=== PATIENT | male | born 1965 | race Caucasian/White ===

== ENCOUNTER 2025-01-22 13:44 | Inpatient (IN) | payer OTHER ==
[~2025-01-22] VITALS: Ht 175.3 cm; Wt 59.0 kg
[2025-01-22 14:46] LABS: APPEARANCE,URINE CLEAR (CLEAR); GLUCOSE, URINE (UA) NEGATIVE (NEGATIVE); LEUKOCYTE ESTERASE ,URINE NEGATIVE (NEGATIVE); NITRATE,URINE NEGATIVE (NEGATIVE); OCCULT BLOOD,URINE NEGATIVE (NEGATIVE); SPECIFIC GRAVITIY, URINE 1.004 (1.003-1.030)
[2025-01-22 14:56] LABS: PLATELET COUNT (AUTO) 279 K/uL (150-450); RED BLOOD CELL COUNT(AUTO) 4.76 MIL/uL (4.50-5.90); RED CELL DISTRIBUTION WIDTH 13.5 % (11.5-14.5); WHITE BLOOD COUNT (AUTO) 5.5 K/uL (4.5-11.0)
[2025-01-22 15:06] LABS: CALCIUM, TOTAL 9.3 mg/dL (8.8-10.5); CREATININE 1.36 mg/dL (0.60-1.30); GLOMERULAR FILTR. RATE CALC 54.0 mL/min (>60); GLUCOSE,RANDOM 87.0 mg/dL (70-110); UREA NITROGEN, BLOOD 19.0 mg/dL (7-18)
[2025-01-22 15:07] LABS: SODIUM SERUM 123.0 mmol/L (136-145)
[2025-01-22] MEDS: POTASSIUM CHL 20 MEQ/0.9% NS 1,000 ML IV SCH (15:26)
[2025-01-22] MEDS: KETOROLAC TROMETHAMINE 30 MG/ML VIAL IVP ONE (17:00)
[2025-01-22] MEDS: MORPHINE SULFATE 2 MG/ML SYRINGE IVP ONE (17:02)
[2025-01-22] MEDS ORDERED: ATOR20TA PO (19:28)
[2025-01-22] MEDS ORDERED: DIPH50CA39 PO (19:28)
[2025-01-22] MEDS ORDERED: CALC500T37 PO (19:28)
[2025-01-22] MEDS ORDERED: MAGN-169 PO (19:28)
[2025-01-22] MEDS ORDERED: HALO5VIA16 IM (19:28)
[2025-01-22] MEDS ORDERED: OMEP-148 PO (19:28)
[2025-01-22] MEDS ORDERED: CHLO50TA71 PO ×2 (19:28→20:33)
[2025-01-22] MEDS ORDERED: TRAZ-252 PO (19:28)
[2025-01-22 19:57] LABS: CALCIUM, TOTAL 8.2 mg/dL (8.8-10.5); CREATININE 1.27 mg/dL (0.60-1.30); GLOMERULAR FILTR. RATE CALC 58.0 mL/min (>60); GLUCOSE,RANDOM 87.0 mg/dL (70-110); SODIUM SERUM 125.0 mmol/L (136-145); UREA NITROGEN, BLOOD 17.0 mg/dL (7-18)
[2025-01-22] MEDS: POTASSIUM CHLORIDE 20 MEQ ER TABLET PO ONE (20:25)
[2025-01-22] MEDS: POTASSIUM CHL 10 MEQ/WATER 50 ML IV SCH (20:26)
[2025-01-22] MEDS ORDERED: ALBUTEROL SULFATE 2.5 MG/0.5 ML NEB SOLUTION NEB PRN (20:30)
[2025-01-22] MEDS ORDERED: ONDANSETRON HCL 4 MG/2 ML VIAL IVP PRN (20:30)
[2025-01-22] MEDS ORDERED: CALCIUM CARBONATE 500 MG CHEWABLE TABLET PO PRN (20:30)
[2025-01-22] MEDS ORDERED: ZOLPIDEM TARTRATE 5 MG TABLET PO PRN (20:30)
[2025-01-22] MEDS ORDERED: IPRATROPIUM BROMIDE 0.5 MG/2.5 ML NEB SOLUTION NEB PRN (20:30)
[2025-01-22] MEDS ORDERED: BISACODYL 10 MG RECTAL RECTAL SUPPOSITORY PR PRN (20:30)
[2025-01-22] MEDS: ATORVASTATIN CALCIUM 20 MG TABLET PO SCH (21:13)
[2025-01-22] MEDS ORDERED: SODIUM CHLORIDE 0.9% 250 ML IV ONE (22:54)
[2025-01-22] MEDS: MORPHINE SULFATE 4 MG/ML SYRINGE IVP PRN (22:58)
[2025-01-22 23:23] VITALS: BP 110/73; PULSE 53; RESP 18; TEMP 97.3; O2SAT 100
[2025-01-23] MEDS: POTASSIUM CHL 10 MEQ/WATER 50 ML IV SCH (02:52)
[2025-01-23] MEDS: POTASSIUM CHLORIDE 20 MEQ ER TABLET PO ONE ×2 (02:52→10:39)
[2025-01-23 04:09] VITALS: BP 117/80; PULSE 53; RESP 19; TEMP 97.7; O2SAT 99
[2025-01-23 09:10] LABS: CALCIUM, TOTAL 8.8 mg/dL (8.8-10.5); CREATININE 1.13 mg/dL (0.60-1.30); GLOMERULAR FILTR. RATE CALC > 60 mL/min (>60); GLUCOSE,RANDOM 93 mg/dL (70-110); SODIUM SERUM 131 mmol/L (136-145); UREA NITROGEN, BLOOD 17 mg/dL (7-18)
[2025-01-23] MEDS: OMEPRAZOLE 20 MG CAPSULE PO SCH (10:39)
[2025-01-23 11:56] VITALS: BP_SYST 111; BP_SYST 128; BP_DIAS 59; BP_DIAS 80; PULSE 62; RESP 18; TEMP 98.4; TEMP 98.8; O2SAT 98
[2025-01-23 15:42] VITALS: BP 109/65; PULSE 67; RESP 18; TEMP 98; O2SAT 97
[2025-01-23 18:05] LABS: ASPARTATE AMINOTRANSFERASE 37 U/L (15-37); CALCIUM, TOTAL 8.9 mg/dL (8.8-10.5); CREATININE 1.11 mg/dL (0.60-1.30); GLOMERULAR FILTR. RATE CALC > 60 mL/min (>60); GLUCOSE,RANDOM 83 mg/dL (70-110); SODIUM SERUM 133 mmol/L (136-145); TOTAL PROTEIN, SERUM 7.0 g/dL (6.4-8.2); UREA NITROGEN, BLOOD 17 mg/dL (7-18)
[2025-01-23 20:00] VITALS: BP 101/66; PULSE 65; RESP 18; TEMP 98.2; O2SAT 99
[2025-01-23] MEDS: MAGNESIUM HYDROXIDE SUSPENSION 30 ML UDCUP PO PRN (20:28)
[2025-01-24] VITALS (7 sets, daily range): BP systolic 90–121; BP diastolic 57–78; PULSE 62–76; RESP 18; TEMP 97.5–98.8; O2SAT 95–100
[2025-01-24 12:45] LABS: CALCIUM, TOTAL 8.4 mg/dL (8.8-10.5); CREATININE 0.97 mg/dL (0.60-1.30); GLOMERULAR FILTR. RATE CALC > 60 mL/min (>60); GLUCOSE,RANDOM 93 mg/dL (70-110); SODIUM SERUM 132 mmol/L (136-145); UREA NITROGEN, BLOOD 15 mg/dL (7-18)
[2025-01-24 13:36] LABS: PHOSPHORUS 2.7 mg/dL (2.5-4.9)
[2025-01-24] MEDS: MAGNESIUM HYDROXIDE SUSPENSION 30 ML UDCUP PO PRN (21:04)
[2025-01-24] MEDS: ACETAMINOPHEN 325 MG TABLET PO PRN (21:05)
== END 2025-01-24 22:25 | DRG 439 ==
LOC: EMS 14:50 → EDH 16:10 → 5N 22:00
PROVIDERS: ADMIT Hospitalist; ATTEND Hospitalist
DX: K85.90 Acute pancreatitis without necrosis or infection, unspecified (principal); E87.1 Hypo-osmolality and hyponatremia; K21.9 Gastro-esophageal reflux disease without esophagitis; E87.6 Hypokalemia; E86.0 Dehydration; F20.9 Schizophrenia, unspecified; E78.5 Hyperlipidemia, unspecified; Z79.899 Other long term (current) drug therapy
CPT/HCPCS: 71045; 74176; 80048; 80053; 81003; 83690; 83735; 84100; 84132; 85025; 93005; 99285; J1885; J2270; J3480; J7050; 36415-L1; 36415-TC